=== PATIENT | female | born 1960 | race Caucasian/White ===

== ENCOUNTER → 2016-10-30 | Outpatient (CLI) | payer OTHER ==
[~2016-10-30] MED LIST: ASPIRIN81 M2 PO; C-10001000 M1 PO; HYDROCHLOROTHIA25 MG PO; LISINOPRIL10 MG PO; MAGNESIUM400 M1 PO; METFORMIN PO; MIRALAX17 GM PO; NASACORT10.8 ML; OMEPRAZOLE20 M2 PO; PERCOCET5/325 PO; VITAMIN D1000 UNI1 PO; XARELTO10 MG PO
--- NOTE | ~2016-10-30 | EKG ---
PATIENT: HUGO FROST UNIT #: [id number] Ventricular Rate: 78 BPM Atrial Rate: 78 BPM P-R Interval: 146 ms QRS Duration: 92 ms Q-T Interval: 380 ms QTC Calculation(Bezet): 433 ms P [place]: 49 degrees Calculated R [place]: 22 degrees Calculated T [place]: 9 degrees Diagnosis Line: Normal sinus rhythm Diagnosis Line: Normal ECG Diagnosis Line: No previous ECGs available Diagnosis Line: Confirmed by CITLALY AN MD ([id number]) on 11/01/2016 Diagnosis Line: 10:28:36 AM INTERPRETING MD: NATALIYA GIVENS
[2016-10-30 14:49] LABS: BUN/CREATININE RATIO 23.33; CALCIUM SERUM 9.2 mg/dL (8.4-10.2); CREATININE SERUM 0.6 mg/dL (0.6-1.4); GLOM FILT RATE Estimated 102.6 mL/min (>60); POTASSIUM 3.9 mmol/L (3.5-5.1)
== END | disposition home or self-care (01) ==
LOC: CAMB 13:00
PROVIDERS: Orthopaedic Surgery
DX: Z01.818 Encounter for other preprocedural examination (principal); S86.812A Strain of other muscle(s) and tendon(s) at lower leg level, left leg, initial encounter
CPT/HCPCS: 36415; 80048; 93005

== ENCOUNTER 2016-11-13 05:42 | Inpatient (IN) | payer OTHER ==
--- NOTE | ~2016-11-13 | CO ---
Unit #: [id number] #: [id number] Patient: HUGO FROST [id number] [address] [place], [place] [address] [id number] MR#: [id number] NAME: HUGO FROST ROOM: 449 Age: 56 Sex: F Admission Date: 11/13/2016 : 1960 Attending Physician: Bessy Burton M.D. Primary Care Physician: Adilene Temple M.D. CONSULTATION REPORT REASON FOR CONSULTATION Management of medical issues with the diabetes. HISTORY OF PRESENT ILLNESS The patient is a 56-year-old female with a history of a left posterior tibial tendon tear resulting in painful rigid flatfoot deformity. Patient underwent the left foot tripe arthrodesis, left proximal tibial bone graft and left gastrocnemius resection earlier today and the hospitalist has been called for the medical management of diabetes. The patient has been diagnosed with the diabetes six months ago. The patient is on metformin twice a day and the sugars are running in the range of 150s. The patient still has trouble understanding the diabetic diet at home. The patient has a strong family history of diabetes and denies any diabetic complications. PAST MEDICAL HISTORY History of a depression, gastroesophageal reflux disease, hypertension, vitamin D deficiency, type 2 diabetes. HOME MEDICATION Aspirin, hydrochlorothiazide, lisinopril, metformin, Nasacort, Prilosec, vitamin C, vitamin D. ALLERGIES Codeine. PAST SURGICAL HISTORY None. FAMILY HISTORY Positive for diabetes. SOCIAL HISTORY The patient is a social drinker. She is currently a nonsmoker but has smoked in the past. REVIEW OF SYMPTOMS Fourteen-point review of symptoms performed and only pertinent positive findings as described above, remaining are negative. PHYSICAL EXAMINATION GENERAL APPEARANCE: On examination patient is lying on a bed not in acute distress. Unit #: [id number] #: [id number] Patient: HUGO FROST VITAL SIGNS: Afebrile, pulse 86, respiration is 20, blood pressure 121/60. HEENT: Head atraumatic/normocephalic. Pupils equal, round and reacting to light and accommodation. Extraocular movements are intact. NECK: Supple. LUNGS: Decreased air entry at the bases. HEART: Regular rate and rhythm. ABDOMEN: Soft, positive bowel sounds. EXTREMITIES: Status post left ankle surgery. NEUROLOGIC: Alert, awake, oriented. No gross focal motor deficit. DIAGNOSTIC STUDIES LABORATORY DATA: Glucose 125 from October 30, BUN 14, creatinine 0.6, sodium 133, potassium 3.9, chloride 98, bicarb 28, calcium 9.2 and blood sugar earlier today is 151. ASSESSMENT 1. The left posterior tibial tendon repair. 2. The diabetes mellitus. PLAN Plan to continue the postop per the Surgery and continue with the sliding-scale insulin and Accu-Chek a.c. and h.s. and patient will have citrus fruit packer for the diabetic diet. Repeat the labs again in the morning, CBC, BMP and check the hemoglobin A1C and further recommendations will follow. Continue with the DVT prophylaxis per protocol. Dictated by... Anthony Carter/meena TD: 11/13/2016 22:22 JOB #: [id number] CONSULTATION REPORT Page 1 of 1 X DAKOTAH ADAME MD X CONSULTATION REPORT
--- NOTE | ~2016-11-13 | OR ---
Unit #: [id number] #: [id number] Patient: HUGO FORST [id number] [address] [place], [place] [address] [id number] MR#: [id number] NAME: HUGO FROST ROOM: [facility] Date of Procedure: 11/13/2016 Admission Date: 11/13/2016 Surgeon: Bessy Burton M.D. : 1960 Attending Physician: Bessy Burton M.D. Primary Care Physician: Adilene Temple M.D. PROCEDURE OPERATIVE NOTE PREOPERATIVE DIAGNOSIS Left posterior tibial tendon tear, stage 3. POSTOPERATIVE DIAGNOSIS Left posterior tibial tendon tear, stage 3. PROCEDURES PERFORMED 1. Left foot triple arthrodesis (02886). 2. Left proximal tibial bone graft (88158). 3. Left gastrocnemius resection (29335). ORAL COMMUNICATION INSTRUCTOR Anthony Victoria D.P.M. ANESTHESIA General and popliteal saphenous block. INDICATION FOR PROCEDURE The patient is a 56-year-old female with severe left foot deformity secondary to posterior tibial tendon tear. She has near dislocation of the talonavicular joint and has articulation of the calcaneus against fibula. She is, therefore, to undergo triple arthrodesis. She has failed nonoperative care. PROCEDURE The patient was taken to the operating room following popliteal saphenous block. She was placed in the supine position. General anesthetic was induced. The left foot was identified as the correct operative location during the timeout procedure. The IV antibiotic protocol was followed. The left leg was then prepped and draped in the usual sterile fashion. The leg was exsanguinated and the thigh tourniquet inflated to 300 mmHg. An 8 cm longitudinal incision was made over the sinus tarsi, ending at the base of the fourth metatarsal. Subcutaneous tissue was divided. The sinus tarsi was exposed and the subtalar joint was distracted with a laminar bottom turning lathe turner. The power osteotome, curved curettes and rongeurs were utilized to move the articular cartilage from both sides of the subtalar joint. The underlying chondral bone was tethered with the power osteotome. The flexor hallucis longus tendon was identified and preserved. The calcaneocuboid joint was exposed with subperiosteal dissection. The power osteotome, curved curettes and rongeurs were utilized to move the articular cartilage from both sides of the calcaneocuboid joint. The Unit #: [id number] #: [id number] Patient: HUGO FROST underlying subchondral bone was tethered with the power osteotome. A medial longitudinal incision was then made over the talonavicular joint, measuring 7 cm. Subcutaneous tissue was divided. The joint capsule over the talonavicular joint was opened and the talar head was exposed. There was near complete dislocation of the talonavicular joint. The power osteotome was then used to move the articular cartilage from the talar head. The joint was then distracted and the articular cartilage from the navicular was removed. The underlying subchondral bone on both sides of the joint was then tethered with the power osteotome. A proximal lateral tibial curvilinear incision was made, measuring 5 cm over Gourdes tubercle. The subcutaneous tissue was divided. The extensor fascia was opened. The proximal tibia was exposed subperiosteally. A 1 x 2 cm cortical window was made with the power osteotome and a large curved curette was then utilized to move the cancellous bone from the proximal tibia. This was then impacted to all the joints. The donor site was then irrigated and back filled with 20 ml of cancellous allograft bone chips. The cortical window was replaced. The subtalar joint was then reduced by using a laminar bottom turning lathe turner to increase the distance between the anterior calcaneal process and the lateral talar process. A guide pin was placed from the posterior inferior heel into the talar neck. An ortho helix 7.0 mm diameter cannulated screw was placed over the guide pin and tightened. Excellent fixation was achieved. Intraoperative c-arm fluoroscopy documented satisfactory screw position and reduction of the subtalar joint. The talonavicular joint was then reduced and the forefoot varus was reduced. The talonavicular joint was then fixated with a 5.5 mm diameter ortho helix cannulated screw placed from distal to proximal. The calcaneocuboid joint was fixated with a 5.5 mm diameter screw placed from distal to proximal. Intraoperative c-arm fluoroscopy documented satisfactory joint position and screw position. The ankle rested in 10 degrees of equinus. Therefore, gastrocnemius resection was required. A 5 cm longitudinal posteromedial midcalf incision was made. Subcutaneous tissue was divided. The deep fascia was opened. The gastrocnemius fascia was identified and then cut transversely with Blas scissors. Ankle dorsiflexion improved to about 5 degrees. The tourniquet was released with a total tourniquet time of 1 hour 40 minutes. Deep tissues were closed with 2-0 Vicryl [id number] sutures, subcuticular tissues were closed with 3-0 Vicryl and skin was closed with 3-0 nylon horizontal mattress sutures. Xeroform gauze dressing, sponges, Webril and a posterior fiberglass splint were applied. The patient was then transported to the recovery room in stable condition. ESTIMATED BLOOD LOSS Minimal. COMPLICATIONS None. SPECIMENS None. TOURNIQUET TIME 1 hour 40 minutes. Unit #: [id number] #: [id number] Patient: HUGO FROST Dictated by..Tracie Burton M.D. RTH/gz TD: 11/13/2016 12:22 JOB #: [id number] CC: Bessy Burton M.D. PROCEDURE OPERATIVE NOTE Page 1 of 1 X Mitchel Burton MD PROCEDURE OPERATIVE NOTE
--- NOTE | ~2016-11-13 | CR72 ---
[facility] A Service of [facility] RADIOLOGY TEXT RESULTS PATIENT: HUGO FROST LOCATION: [facility] 449 : 62 UNIT #: [id number] AGE: [address]: Mitchel Burton MD SEX: F ORDER DR: [id number] [facility] [address]. [place], [place] [address] [id number] MR#: [id number] Acc #: [id number] NAME: HUGO FROST : 1960 SEX: F STUDY DATE/TIME: 11/14/2016 15:37 UNIT: [facility] ROOM: [facility] STUDY DESCRIPTION: CR Chest Single View Portable Attending Physician: Bessy Burton M.D. Ordering Physician: Jennifer Mcguire M.D. Primary Care Physician: Adilene Temple M.D. MEDICAL IMAGING REPORT This report is preliminary unless electronic signature is present EXAM AP portable chest DATE 11/14/2016 HISTORY Wheezing since 11/13/2016. Quit smoking 1 year ago, greater than 40-year smoking history. Additional history of shortness of breath, pain, cough, congestion. COMPARISON PA lateral chest 04/26/2016. FINDINGS No acute airspace disease. Heart size is within normal limits. Pulmonary vascular distribution is normal. No pleural effusion or pneumothorax or acute osseous abnormalities are identified. IMPRESSION No acute cardiopulmonary findings. Dictated by... Angeli Martin M.D. THIS IS AN ELECTRONICALLY VERIFIED REPORT Angeli Martin M.D. at 11/15/2016 10:05 AM LL/cindy TD: 11/14/2016 23:23 JOB #: [id number] MEDICAL IMAGING REPORT [facility] A Service of [facility] RADIOLOGY TEXT RESULTS PATIENT: HUGO FROST LOCATION: [facility] 449 : [birth year] UNIT #: [id number] AGE: [address]: Mitchel Burton MD SEX: F ORDER DR: Page 1 of 1 COPY
--- NOTE | ~2016-11-13 | DS ---
Unit #: [id number] #: [id number] Patient: HUGO FROST [id number] [address] [address] [id number] I MR#: [id number] NAME: HUGO FROST ROOM: 449 Age: 56 Sex: F Admission Date: 11/13/2016 : 1960 Discharge Date: 11/15/2016 Attending Physician: Bessy Burton M.D. Primary Care Physician: Adilene Temple M.D. DISCHARGE SUMMARY CHIEF COMPLAINT Left foot pain. HISTORY OF PRESENT ILLNESS The patient is a 56-year-old female with painful left foot deformity secondary to posterior tibial tendon tear, stage 3. She had failed to respond to conservative care and was admitted for triple arthrodesis. HOSPITAL COURSE The patient was taken to the operating room on the day of admission, where she underwent left foot triple arthrodesis, proximal tibial bone graft and gastrocnemius resection. She had a stable postoperative course and no operative complications. She was seen by physical therapy on a daily basis and instructed on how to remain nonweightbearing on her affected side. The internal medicine service managed her diabetes with sliding scale insulin. She remained afebrile with stable vital signs. Dressing was changed on the first postoperative day. Wounds were healing well. Alignment was satisfactory. Hematocrit 34.4% second postoperative day. She was ready for discharge on the second postoperative day. FINAL DIAGNOSES Stage 3 left posterior tibial tendon dysfunction. DISPOSITION The patient is discharged home. DISCHARGE INSTRUCTIONS 1. She will keep the dressing clean, dry and intact. 2. Continue ice and elevation. 3. Nonweightbearing for a total of three months. DISCHARGE MEDICATIONS 1. Remain the same as her home medications 2. Xarelto 10 mg p.o. daily for 12 days. 3. Percocet 5/325 mg 1-2 p.o. q.4-6 h. p.r.n. pain. Dispensed 50. FOLLOWUP Follow up in my office in two weeks for dressing change, stitch removal, application of a cast. Dictated by... Bessy Burton M.D. RT/ Unit #: [id number] #: [id number] Patient: HUGO FROST TD: 11/16/2016 09:53 JOB #: [id number] CC: Bessy Burton M.D. DISCHARGE SUMMARY Page 1 of 1 X Mitchel Burton MD DISCHARGE SUMMARY
--- NOTE | ~2016-11-13 | HP ---
Unit #: [id number] #: [id number] Patient: HUGO FROST [id number] [address] [place], [place] [address] [id number] MR#: [id number] NAME: HUGO FROST ROOM: Age: Sex: F Admission Date: 11/13/2016 : 1960 Attending Physician: Bessy Burton M.D. Primary Care Physician: Adilene Temple M.D. HISTORY AND PHYSICAL CHIEF COMPLAINT Left foot pain and deformity. HISTORY OF PRESENT ILLNESS This patient is a 56-year-old female with a left posterior tibial tendon tear resulting in a painful, rigid, flatfoot deformity. She has been unresponsive to conservative care to include orthotics, medication and activity limitation. Radiographs show significant deformity. Exam shows stiffness of the deformity. She is, therefore, to undergo triple arthrodesis, possible tibial bone graft, gastrocnemius recession and possible Cotton procedure. PAST MEDICAL HISTORY Remarkable for: 1. Depression. 2. Gastroesophageal reflux disease. 3. Hypertension. 4. Vitamin D deficiency. 5. Type 2 diabetes. HOME MEDICATIONS 1. Aspirin. 2. Hydrochlorothiazide. 3. Lisinopril. 4. Metformin. 5. Nasacort. 6. Prilosec. 7. Vitamin C. 8. Vitamin D. ALLERGIES Codeine. PAST SURGICAL HISTORY Unremarkable. FAMILY HISTORY Hypertension, arthritis, diabetes, hypercholesterolemia. SOCIAL HISTORY The patient is a social drinker. She is currently a nonsmoker but has smoked in the past. REVIEW OF SYSTEMS Unit #: [id number] #: [id number] Patient: HUGO FROST Otherwise unremarkable. PHYSICAL EXAMINATION GENERAL: Height 5 foot 6, weight 243 pounds. BMI 39.2. This is a morbidly obese female in no acute distress. PHARYNX: Clear. NECK: Supple without masses. HEART: Regular sinus rhythm without murmurs or gallops. LUNGS: Clear. ABDOMEN: Soft and nontender without masses or organomegaly. Evaluation of the left foot shows a flatfoot deformity with 10 degrees of heel valgus and significant forefoot abduction. She exhibits a positive Saeid toe sign and is unable to do a single heel rise. She has a weakness of inversion of the hindfoot. Pulses are intact. Sensation is normal. Motor exam is otherwise normal. Standing x-rays of the left ankle are normal. Standing x-rays of the left foot show 50% uncovering of the talonavicular joint with loss of (1) ankle and loss of calcaneal pitch. ADMITTING DIAGNOSIS Stage 3 left posterior tibial tendon tear. PLAN The patient has failed to conservative care. She is, therefore, admitted for left foot triple arthrodesis, proximal tibial bone graft, gastrocnemius recession, and possible Cotton procedure. This procedure was described in detail along with risks of bleeding, infection, nerve damage, need for further surgery in the future, prolonged recovery time, deep venous thrombosis, pulmonary embolism, nonunion, malunion, persistent swelling and anesthetic complications. She understands that recovery time will be one year from the time of surgery for this to be (2) better. Dictated by Anthony Salguero/tamiko TD: 11/12/2016 18:59 JOB #: [id number] HISTORY AND PHYSICAL Page 1 of 1 X Mitchel uBrton MD HISTORY AND PHYSICAL
--- NOTE | ~2016-11-13 | A ---
[facility] Nutrition Therapy DATE: 11/13/16 Patient: HUGO FROST Physician: LYDIA Address: [address] [place] [address] DRIVE Room/Bed: [address] [place] [address], Zip: [place] [address] Admit Date: 11/13/16 Date of : [birth year] Height: 5 8 Weight: 237 107.6 NUTRITIONAL ASSESSMENT: REASON: Consult for DM diet education Assessment: RD spoke with the pt at bedside. Pt was slightly drowsy; however very pleasant, and she voiced interest in learning more about her diet. RD provided extensive diet education. Pt was diagnosed with DM 6 months ago, and reports that she has never learned about consistent carbohydrate diet strategies. Pt was very appreciate, and demonstrated motivation to make changes. RD provided printed materials, and encouraged the pt to contact RD with any further questions, especially since she was quite drowsy. RD to remain available. Recommendations: 1. Pt would benefit from seeing an outpatient RD for follow up education and accountability. 2. RD to remain available if the pt has any additional questions. Please consult RD for any further nutritional needs. Respectfully, FUENTES PIZANO RD, LD [facility] cc: client file
[~2016-11-13 05:42] MED LIST changes: -MAGNESIUM400 M1 PO; -MIRALAX17 GM PO; -PERCOCET5/325 PO; -XARELTO10 MG PO
[2016-11-14 02:38] LABS: BASOPHIL% 0.2 % (0-2.5); EOSINOPHIL# 0.1 X10e3 (0-0.7); EOSINOPHIL% 0.8 % (0.0-7.0); HEMATOCRIT 34.7 % (35.0-45.0); HEMOGLOBIN 11.3 gm/dL (12.0-16.0); LYMPHOCYTE# 1.3 X10e3 (1.0-3.5); LYMPHOCYTE% 13.4 % (17.0-45.0); MEAN CELL VOLUME 91.3 FL (83-96); MEAN CORPUSCULAR HEMOGLOBIN 29.8 PG (28-34); MEAN CORPUSCULAR HGB CONC 32.6 g/dL (30-36); MEAN PLATELET VOLUME 9.7 FL (6.5-11.5); MONOCYTE# 1.3 X10e3 (0-1.0); MONOCYTE% 13.2 % (3.0-12.0); NEUTROPHIL# 7.3 X10e3 (1.5-7.1); NEUTROPHIL% 72.4 % (40-75); PLATELET COUNT 233 X10e3 (140-420); RED CELL DISTRIBUTION WIDTH 12.9 % (11.0-15.5)
[2016-11-14 02:44] LABS: DIFF IND NO
[2016-11-14 03:13] LABS: CALCIUM SERUM 8.4 mg/dL (8.4-10.2); CREATININE SERUM 0.5 mg/dL (0.6-1.4); POTASSIUM 3.7 mmol/L (3.5-5.1)
[2016-11-15 03:33] LABS: HEMATOCRIT 34.4 % (35.0-45.0); HEMOGLOBIN 11.2 gm/dL (12.0-16.0)
[2016-11-15 04:05] LABS: BUN/CREATININE RATIO 14.28; CALCIUM SERUM 8.6 mg/dL (8.4-10.2); CREATININE SERUM 0.7 mg/dL (0.6-1.4); GLOM FILT RATE Estimated 97.5 mL/min (>60); MAGNESIUM 1.7 mg/dL (1.6-3.0); POTASSIUM 3.8 mmol/L (3.5-5.1)
[2016-11-15] MEDS ORDERED: MAGNESIUM400 M1 PO (14:39)
[2016-11-15] MEDS ORDERED: MIRALAX17 GM PO (14:41)
[2016-11-15] MEDS ORDERED: PERCOCET5/325 PO (14:41)
[2016-11-15] MEDS ORDERED: XARELTO10 MG PO (14:42)
== END 2016-11-15 16:42 | disposition home or self-care (01) | DRG 494 ==
LOC: CSUR 05:42 → CEDOF 10:02 → CSUR 10:02 → CEDOF 10:38 → C4B 10:38 → CEDOF 11:25 → C4B 11:25
PROVIDERS: Internal Medicine; Nurse Practitioner; Orthopaedic Surgery
PROC: 0SGJ04Z Fusion of Left Tarsal Joint with Internal Fixation Device, Open Approach (ICD-10-PCS; 2016-11-13)
PROC: 0SGJ07Z Fusion of Left Tarsal Joint with Autologous Tissue Substitute, Open Approach (ICD-10-PCS; 2016-11-13)
PROC: 0SGJ07Z Fusion of Left Tarsal Joint with Autologous Tissue Substitute, Open Approach (ICD-10-PCS; 2016-11-13)
PROC: 0SGJ07Z Fusion of Left Tarsal Joint with Autologous Tissue Substitute, Open Approach (ICD-10-PCS; 2016-11-13)
PROC: 0LSP0ZZ Reposition Left Lower Leg Tendon, Open Approach (ICD-10-PCS; 2016-11-13)
PROC: 0SGJ04Z Fusion of Left Tarsal Joint with Internal Fixation Device, Open Approach (ICD-10-PCS; principal; 2016-11-13 07:30)
PROC: 0QBH0ZZ Excision of Left Tibia, Open Approach (ICD-10-PCS; 2016-11-13 07:30)
PROC: 0SGJ04Z Fusion of Left Tarsal Joint with Internal Fixation Device, Open Approach (ICD-10-PCS; 2016-11-13 07:30)
DX: S86.112A Strain of other muscle(s) and tendon(s) of posterior muscle group at lower leg level, left leg, initial encounter (principal); I10 Essential (primary) hypertension; X58.XXXA Exposure to other specified factors, initial encounter; M21.42 Flat foot [pes planus] (acquired), left foot; E11.9 Type 2 diabetes mellitus without complications; Z79.84 Long term (current) use of oral hypoglycemic drugs; F32.9 Major depressive disorder, single episode, unspecified; K21.9 Gastro-esophageal reflux disease without esophagitis; Z79.82 Long term (current) use of aspirin; Z83.3 Family history of diabetes mellitus; Z82.49 Family history of ischemic heart disease and other diseases of the circulatory system; Z87.891 Personal history of nicotine dependence; Z88.5 Allergy status to narcotic agent; G47.33 Obstructive sleep apnea (adult) (pediatric); E66.9 Obesity, unspecified; Z68.36 Body mass index [BMI] 36.0-36.9, adult
CPT/HCPCS: 71010; 80048; 82947; 83036; 83735; 85014; 85018; 85025; 94010; 94760; 94762; 97116; 97161; 97530; C1713; J0690; J1815; J2250; J2270; J2405; J2795; J3010